=== PATIENT | female | born 1930 | race Caucasian/White ===

== ENCOUNTER 2016-09-24 08:04 | Emergency (ER) | payer MEDICARE, BC ==
--- NOTE | ~2016-09-24 | CT71 ---
[facility] A Service of [facility] RADIOLOGY TEXT RESULTS PATIENT: MARKELL DAMON LOCATION: [facility] : 28 UNIT #: [id number] AGE: [address]: Jania Araya APRN SEX: F ORDER DR: [id number] [facility] [address] [place], [place] [address] [id number] E MR#: [id number] Acc #: [id number] NAME: MARKELL DAMON : 1930 SEX: F STUDY DATE/TIME: 09/24/2016 9:07 UNIT: [facility] ROOM: STUDY DESCRIPTION: CT Head Wo Contrast Attending Physician: Jania Araya A.P.R.N. Ordering Physician: Andrea Conde M.D. Primary Care Physician: Leo Tucker M.D. MEDICAL IMAGING REPORT This report is preliminary unless electronic signature is present EXAM CT of the head without contrast INDICATION Tripping yesterday falling forward hitting head and has facial pain. TECHNIQUE CT head performed without contrast. No comparisons are available. This CT examination was performed with one or more of the following radiation dose reduction techniques: automatic exposure control, adjustment of mA and/or kV according to patient size, and iterative reconstruction. FINDINGS There is no intracranial hemorrhage. No acute cortical based infarction, focal mass lesion or hydrocephalus. 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 Carotid siphon calcifications. Age-appropriate atrophy. Visualized paranasal sinuses are unremarkable. The bone windows are unremarkable. IMPRESSION 1. No acute intracranial abnormality. 2. 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 Dictated by... Erlin Kirby M.D. THIS IS AN ELECTRONICALLY VERIFIED REPORT Erlin Kirby M.D. at 09/24/2016 12:23 PM RAMOS/kenya TD: 09/24/2016 10:14 JOB #: [id number] [facility] A Service of [facility] RADIOLOGY TEXT RESULTS PATIENT: MARKELL DAMON [id number] [birth year] UNIT #: [id number] AGE: [address]: Jania Araya APRN SEX: F ORDER DR: MEDICAL IMAGING REPORT Page 1 of 1 COPY
--- NOTE | ~2016-09-24 | CR173 ---
[facility] A Service of [facility] RADIOLOGY TEXT RESULTS PATIENT: MARKELL DAMON LOCATION: [facility] : 28 UNIT #: [id number] AGE: [address]: Jania Araya APRN SEX: F ORDER DR: [id number] [facility] [address] [place], [place] [address] [id number] E MR#: [id number] Acc #: [id number] NAME: MARKELL DAMON : 1930 SEX: F STUDY DATE/TIME: 09/24/2016 8:51 UNIT: [facility] ROOM: STUDY DESCRIPTION: CR Knee 3 Views Rt Attending Physician: Jania Araya A.P.R.N. Ordering Physician: Ed Doctor [id number] [facility] Primary Care Physician: Leo Tucker M.D. MEDICAL IMAGING REPORT This report is preliminary unless electronic signature is present EXAM Right knee 3 views INDICATIONS Frontal right knee pain, swelling and bruising since yesterday. COMPARISON No comparisons. FINDINGS There is a comminuted fracture of the patella. This is best seen on the lateral view. There is associated soft tissue swelling anterior to the patella and also a large knee joint effusion. There is severe lateral compartment degenerative change. Moderate lateral compartment narrowing and there is appears be some remodeling of the lateral tibial plateau. No obvious tibial fracture is noted. IMPRESSION Comminuted fracture of the patella with associated large knee joint effusion and overlying soft tissue swelling. Dictated by... Erlin Kirby M.D. THIS IS AN ELECTRONICALLY VERIFIED REPORT Erlin Kirby M.D. at 09/24/2016 12:23 PM Trevor TD: 09/24/2016 09:55 JOB #: [id number] MEDICAL IMAGING REPORT Page 1 of 1 COPY
[~2016-09-24 08:04] MED LIST: ACTONEL PO; ASPIRIN81 M1 PO; CALCIUM500 MG PO; COENZYME Q10; EXFORGE; FISH OIL 1,0001 CAP PO; FLAGYL PO; LEVAQUIN PO; LODINE PO; MIRALAX17 GM DOB; NAPROXEN PO; NEPHROCAPS CAPSU1 MG PO; NORVASC PO; OSTEO-BIFLEX PO; OYSTER CALCIUM500 MG PO; POTASSIUM1 UDCAP.SA PO; PRAVACHOL PO; PREMPRO 0.3 MG/1 TAB PO; PRILOSEC PO; PRILOSEC20 MG PO; VIT E PO; VITAMIN B-COMPL1 CA1 PO; VITAMIN C PO; VITAMIN D1000 UNI1 PO; [UNRECOGNIZED DRUG - OTHER]
== END 2016-09-24 10:50 | disposition home or self-care (01) ==
LOC: CED 08:04
DX: S82.041A Displaced comminuted fracture of right patella, initial encounter for closed fracture (principal); S01.511A Laceration without foreign body of lip, initial encounter; I10 Essential (primary) hypertension; Z23 Encounter for immunization; W01.0XXA Fall on same level from slipping, tripping and stumbling without subsequent striking against object, initial encounter; Y92.9 Unspecified place or not applicable
CPT/HCPCS: 70450; 73562; 90471; 90715; 99284